=== PATIENT | male | born 1985 | race Caucasian/White ===

== ENCOUNTER 2020-01-24 03:46 | Inpatient (IN) | payer SELFPAY ==
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
[2020-01-24] MEDS ORDERED: LORazepam INJ* 2 MG/ML 1 ML VIAL IM ONE (04:02)
[2020-01-24] MEDS ORDERED: diPHENhydraMINE IV* 50 MG/ML 1 ml VIAL (BENADRYL) IM ONE (04:02)
[2020-01-24] MEDS ORDERED: Haloperidol INJ IV/IM* 5 MG/ML AMP IM ONE (04:02)
[2020-01-24] MEDS ORDERED: Haloperidol Decanoate* 50 MG/ML AMP ONE (04:03)
[2020-01-24] MEDS ORDERED: LORazepam INJ* 2 MG/ML 1 ML VIAL ONE (04:03)
[2020-01-24] MEDS ORDERED: diPHENhydraMINE IV* 50 MG/ML 1 ml VIAL (BENADRYL) ONE (04:03)
[2020-01-24 04:12] LABS: ABS Basophils 0.1 10^3/ul (0-0.2); ABS Lymphocytes 3.2 10^3/ul (1.0-4.8); ABS Monocytes 0.6 10^3/ul (0-0.8); ABS Neutrophils 5.7 10^3/ul (1.5-7.7); Eosinophil % 0.2 %; Hematocrit 48 % (42-52); Lymphocyte % 33.6 %; Mean Corpuscular HGB Conc 35 g/dL (31-36); Mean Corpuscular Hemoglobin 32 pg (27-31); Mean Corpuscular Volume 90 fL (80-94); Mean Platelet Volume 7.4 fL (7.4-10.4); Platelet Count 309 10^3/uL (150-450); Red Blood Count 5.38 10^6 /uL (4.18-5.48); Red Cell Distribution Width 13 % (10-15); White Blood Count 9.7 10^3/uL (3.5-10.8)
[2020-01-24 04:28] LABS: ALT 45 U/L (7-52); AST 28 U/L (13-39); Albumin 4.7 g/dL (3.2-5.2); Albumin/Globulin Ratio 1.5 (1-3); Alkaline Phosphatase 95 U/L (34-104); Anion Gap 11 mmol/L (2-11); BUN/Creatinine Ratio 11.5 (8-20); Blood Urea Nitrogen 9 mg/dL (6-24); CO2 Carbon Dioxide 24 mmol/L (22-32); Calcium 9.7 mg/dL (8.6-10.3); Chloride 104 mmol/L (101-111); EGFR African American 136.3 (>60); EGFR Non-African American 112.6 (>60); Globulin 3.2 g/dL (2-4); Glucose 157 mg/dL (70-100); Potassium 3.6 mmol/L (3.5-5.0); Sodium 139 mmol/L (135-145); Total Protein 7.9 g/dL (6.4-8.9)
[2020-01-24 04:49] LABS: Acetaminophen < 15 mcg/mL; Alcohol 242 mg/dL (<10); Salicylate < 2.50 mg/dL (<30)
[2020-01-24 04:51] LABS: Urine Benzodiazepine Screen None Detected (None Detect); Urine Opiates Screen None Detected (None Detect)
[2020-01-24 04:53] LABS: Urine Appearance Clear; Urine Bacteria Absent (Absent); Urine Bilirubin Negative (Negative); Urine Blood Negative (Negative); Urine Color Straw; Urine Glucose Negative (Negative); Urine Ketones Negative (Negative); Urine Nitrite Negative (Negative); Urine Protein Negative (Negative); Urine Red Blood Cell Trace(0-2/hpf) (Absent); Urine Specific Gravity 1.003 (1.010-1.030); Urine Squamous Epithelial Cell Present (Absent); Urine Urobilinogen Negative (Negative); Urine White Blood Cell Trace(0-5/hpf) (Absent)
[2020-01-24 05:05] LABS: TSH (Thyroid Stimulating Horm) 4.15 mcIU/mL (0.34-5.60)
--- NOTE | 2020-01-24 09:44 | ED ---
Progress - Progress Note Progress Note: Receiving sign-out from Dr. Solitario at 0700 01/24/2020 pending sobriety and MHE. Patient became sober at 1000 and cleared for MHE. Patient was diagnosed with substance use disorder by MHE and admitted to the psychiatric facility involuntarily, per Dr. Romero, Psychiatry. Re-Evaluation - Re-Evaluation First Eval Re-Evaluation Time: 04:05 Comment: Chemical restraints ordered, patient was uncooperative, a harm to self and others, multiple attempts at de-escalation were unsuccessful. Second Eval Re-Evaluation Time: 04:54 Change: Improved Comment: Patient is calm after receiving Benadryl, Ativan, and Haldol. Course/Dx - Course Course Of Treatment: Receiving sign-out from Dr. Solitario at 0700 01/24/2020 pending sobriety and MHE. Patient became sober at 1000 and cleared for MHE. Patient was diagnosed with substance use disorder by MHE and admitted to the psychiatric facility involuntarily, per Dr. Romero, Psychiatry. - Diagnoses Provider Diagnoses: Acute alcohol intoxication, Suicidal ideation, Substance use disorder Discharge ED - Sign-Out/Discharge Documenting (check all that apply): Patient Departure - Admission to Psych, per MHE - Discharge Plan Condition: Stable Disposition: PSYCHIATRIC FACILITY-OTHER - Billing Disposition and Condition Condition: STABLE Disposition: Psychiatric Facility Other - Attestation Statements Document Initiated by Marah: Yes Documenting Scribe: Yvan Reyes Provider For Whom Marah is Documenting (Include Credential): Jacek Castrejon DO Scribe Attestation: IYvan scribed for Jacek Castrejon DO on 01/24/20 at 1444. Scribe Documentation Reviewed: Yes Provider Attestation: The documentation as recorded by the Yvan hooper accurately reflects the service I personally performed and the decisions made by , Jacek Castrejon DO Status of Scribe Document: Viewed
[2020-01-24] MEDS ORDERED: Acetaminophen TAB* 325 MG PO PRN (11:10)
[2020-01-24] MEDS ORDERED: Al Hydrox/Mg Hydrox/Simet LIQ* 30 ML UDC PO PRN (11:10)
[2020-01-24] MEDS ORDERED: LORazepam TAB(*) 1 MG PO SCH (12:00)
[2020-01-25] MEDS: Multivitamins/Minerals TAB PO SCH (07:31)
[2020-01-25] MEDS: Folic Acid TAB* 1 MG PO SCH (07:31)
[2020-01-25] MEDS: Thiamine TAB* 100 MG TAB PO SCH (07:32)
[2020-01-25 08:35] LABS: HDL Cholesterol 42.6 mg/dL
[2020-01-25] MEDS: Escitalopram * 20 MG TABLET PO SCH (14:21)
[2020-01-25] MEDS: Pantoprazole TAB * 40 MG TAB PO SCH (14:21)
[2020-01-25] MEDS: amLODIPine TAB* 5 MG PO SCH (15:16)
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
[2020-01-26] MEDS: Thiamine TAB* 100 MG TAB PO SCH (09:49)
[2020-01-26] MEDS: amLODIPine TAB* 5 MG PO SCH (09:49)
[2020-01-26] MEDS: Pantoprazole TAB * 40 MG TAB PO SCH (09:49)
[2020-01-26] MEDS: Multivitamins/Minerals TAB PO SCH (09:49)
[2020-01-26] MEDS: Escitalopram * 20 MG TABLET PO SCH (09:49)
[2020-01-26] MEDS: Folic Acid TAB* 1 MG PO SCH (09:49)
[2020-01-26] MEDS: Nicotine* 4MG (FRUIT FLAVOR) GUM PO PRN ×3 (15:44→21:21)
[2020-01-26] MEDS: Nicotine PATCH 21 MG/24 HR* PATCH TRANSDERM SCH (15:44)
--- NOTE | 2020-01-26 16:09 | PN ---
Subjective - Subjective Date of Service: 01/26/20 Service Type: 06050 Hosp care 35 min high complexity Subjective: Patient reports he feels "good" and denies SI. He continues to minimize alcohol use and how it has impacted relationships and legal consequences. He is alternately cooperative, defensive, and ingratiating. He is dismissive of suggestions for treatment with the exception of "what do I need to do to get out of here?" Patient is strongly encouraged to participate in unit programming and self-reflection. He is given information about medications for alcohol use disorder, declines at this time. Licensed Investment Sales Assistant spoke with patient's SO, Nichole. Apparently, he had told her that he is being discharged today and she was feverishly trying to find out about his court appearance and plan for his return. She states she doesn't want him to come home because she has set limits about substance use in the past but then took him back because of her concern for him. She states that she has " dealing with this for 10 years" and doesn't know what to do. She states she him in 2009, before he disclosed addiction to opiates until 2012. He also has a history of abusing adderall. She goes into detail about how most of the problems in his life and their relationship center around alcohol but that he doesn't see it. She asked about his behavior on the unit and she was given update. She states "you can tell him that until he participates in treatment, he doesn't have a place to live." She states preference for him to attend inpatient rehab. Licensed Investment Sales Assistant notified Philip of plan to continue to treat over the weekend, especially due to threats to suicide after hospitalization. He is informed of Nichole's boundary that he must engage in treatment in order to return to her mother's home. He is ingratiating and pleading to be discharged. Licensed Investment Sales Assistant reiterates encouragement to be open-minded and to engage in treatment and self-reflection. Objective - General Observations Appearance: Well Groomed Stature: Overweight Posture: WNL Eye Contact: Average Behavior/Activity: Agitated - Interaction Observations Attitude Towards Examiner: Anxious, Defensive, Ingratiating, Dismissive Stated Mood: Irritable Affect: Labile Speech Pattern/Tone: Clear, Appropriate, Normal Volume Thought Process: Circumstantial Thought Content: Depressive Thought Process: Lethality: Suicidal Planning Hallucination Type: Denies Delusion Type: Denies - Cognitive Function Orientation: A&O x 4 Level of Consciousness: Alert Cognition: Impaired Attention/Concentration Estimated Intelligence: Normal Insight: Mostly Blames Others for Problems Judgment Within Normal Limits: No Ability to Make Reasonable Decisions: Serverely Impaired - Medication Compliance Cooperative with Inpatient Medication Regimen: Yes - Group Participation Participates in Group Activities: No Assessment - Assessment Merits Inpatient Hospitalization: For Immediate Safety, For Stabilization Inpatient DSM-V Dx: F10.14 Clinical Impression: 34 yo wm, unemployed, tenuously housed with ex- and her mother. He was brought to ED due to making suicidal and violent threats to police when being arrested for DWI. He is minimizing need for treatment and externalizes blame. He made statements about planning to pretend everything is ok and suiciding after discharge. He continues to present as labile and agitated. Patient merits hospitalization for immediate safety and stabilization. Plan - Plan Treatment Plan: Name: PHILIP ANDRES Birthdate: 1985 [id number] continue acute intensive psychiatric treatment. may decrease to q30min. continue current medications. discharge planning to include MH and [facility] treatment referrals. Medications: Current Medications Acetaminophen (Tylenol Tab*) 650 mg PO Q4H PRN PRN Reason: for pain; or Temp >101 F Al Hydrox/Mg Hydrox/Simethicone (Maalox Plus*) 30 ml PO Q4H PRN PRN Reason: INDIGESTION Amlodipine Besylate (Norvasc Tab*) 5 mg PO DAILY [facility] Last Admin: 01/26/20 09:49 Dose: 5 mg Escitalopram Oxalate (Lexapro *) 20 mg PO DAILY [facility] Last Admin: 01/26/20 09:49 Dose: 20 mg Folic Acid (Folvite Tab*) 1 mg PO DAILY [facility] Last Admin: 01/26/20 09:49 Dose: 1 mg Hydroxyzine HCl (Atarax Tab*) 50 mg PO Q6H PRN PRN Reason: anxiety Lorazepam (Ativan Tab(*)) 0 - 6 mg PO .PER [facility] PROTOCOL [facility]; Protocol Last Admin: 01/25/20 07:31 Dose: 2 mg Multivitamins/Minerals (Theragran/Minerals Tab*) 1 tab PO DAILY [facility] Last Admin: 01/26/20 09:49 Dose: 1 tab Nicotine (Nicotine Patch 21 Mg/24 Hr*) 1 patch TRANSDERM DAILY [facility] Nicotine Polacrilex (Nicotine Gum*) 4 mg PO Q2H PRN PRN Reason: CRAVING Pantoprazole Sodium (Protonix Tab*) 40 mg PO DAILY [facility] Last Admin: 01/26/20 09:49 Dose: 40 mg Pharmacy Profile Note (Nicotine Patch Removal Note*) 1 note FOLLOW UP 2100 [facility] Thiamine HCl (Vitamin B-1 Tab*) 100 mg PO DAILY [facility] Last Admin: 01/26/20 09:49 Dose: 100 mg - Discharge Plan Discharge Plan: Inpatient Hospitalization
[2020-01-26] MEDS: Nicotine Patch Removal NOTE FOLLOW UP SCH (21:00)
[2020-01-27] MEDS: Pantoprazole TAB * 40 MG TAB PO SCH (09:04)
[2020-01-27] MEDS: Multivitamins/Minerals TAB PO SCH (09:04)
[2020-01-27] MEDS: Escitalopram * 20 MG TABLET PO SCH (09:04)
[2020-01-27] MEDS: amLODIPine TAB* 5 MG PO SCH (09:04)
[2020-01-27] MEDS: Folic Acid TAB* 1 MG PO SCH (09:04)
[2020-01-27] MEDS: Thiamine TAB* 100 MG TAB PO SCH (09:04)
[2020-01-27] MEDS: Nicotine PATCH 21 MG/24 HR* PATCH TRANSDERM SCH (09:05)
[2020-01-27] MEDS: Nicotine* 4MG (FRUIT FLAVOR) GUM PO PRN ×4 (09:21→18:28)
[2020-01-27] MEDS: hydrOXYzine HCL TAB* 50 MG PO PRN (18:28)
--- NOTE | 2020-01-27 20:06 | PN ---
Subjective - Subjective Date of Service: 01/27/20 Service Type: 23355 Hosp care 15 min low complexity Subjective: Has no complaints about his treatment here. Sleeping OK. Reports no alcohol withdrawal symptoms. Plans on inpt rehab for that. Objective - General Observations Appearance: Neat, Well Groomed Appears Stated Age: Yes Stature: WNL Posture: WNL Eye Contact: Average Behavior/Activity: WNL - Interaction Observations Attitude Towards Examiner: Cooperative Stated Mood: Dysphoric Affect: Full Speech Pattern/Tone: Clear, Appropriate, Normal Volume Thought Process: Coherent, Goal Directed Perception: WNL Thought Content: WNL Hallucination Type: None Delusion Type: None - Cognitive Function Orientation: A&O x 4 Level of Consciousness: Awake, Alert, Appropriate Cognition: WNL Estimated Intelligence: Normal Insight: WNL Judgment Within Normal Limits: Yes Ability to Make Reasonable Decisions: Mildly Impaired - Medication Compliance Cooperative with Inpatient Medication Regimen: Yes - Group Participation Participates in Group Activities: Yes Assessment - Assessment Merits Inpatient Hospitalization: For Stabilization, Consolidate Improvements, For Discharge Planning Inpatient DSM-V Dx: F10.14 Clinical Impression: 34 yo wm, unemployed, tenuously housed with ex- and her mother. He was brought to ED due to making suicidal and violent threats to police when being arrested for DWI. He is minimizing need for treatment and externalizes blame. He made statements about planning to pretend everything is ok and suiciding after discharge. He continues to present as labile and agitated. Patient merits hospitalization for immediate safety and stabilization. On 01.27.20, reports agreement with aftercare for alcohol use disorder at in program. Agreeable to psychiatric aftercare, likely at [facility]. Plan - Plan Treatment Plan: Name: BANDAR ANDRES Birthdate: 1985 [id number] continue acute intensive psychiatric treatment. may decrease to q30min. continue current medications. discharge planning to include MH and [facility] treatment referrals. Continued Medication Management: Continue Outpt Medication Medications: Current Medications Acetaminophen (Tylenol Tab*) 650 mg PO Q4H PRN PRN Reason: for pain; or Temp >101 F Al Hydrox/Mg Hydrox/Simethicone (Maalox Plus*) 30 ml PO Q4H PRN PRN Reason: INDIGESTION Amlodipine Besylate (Norvasc Tab*) 5 mg PO DAILY [facility] Last Admin: 01/27/20 09:04 Dose: 5 mg Escitalopram Oxalate (Lexapro *) 20 mg PO DAILY [facility] Last Admin: 01/27/20 09:04 Dose: 20 mg Folic Acid (Folvite Tab*) 1 mg PO DAILY [facility] Last Admin: 01/27/20 09:04 Dose: 1 mg Hydroxyzine HCl (Atarax Tab*) 50 mg PO Q6H PRN PRN Reason: anxiety Last Admin: 01/27/20 18:28 Dose: 50 mg Lorazepam (Ativan Tab(*)) 0 - 6 mg PO .PER [facility] PROTOCOL [facility]; Protocol Last Admin: 01/25/20 07:31 Dose: 2 mg Multivitamins/Minerals (Theragran/Minerals Tab*) 1 tab PO DAILY [facility] Last Admin: 01/27/20 09:04 Dose: 1 tab Nicotine (Nicotine Patch 21 Mg/24 Hr*) 1 patch TRANSDERM DAILY [facility] Last Admin: 01/27/20 09:05 Dose: 1 patch Nicotine Polacrilex (Nicotine Gum*) 4 mg PO Q2H PRN PRN Reason: CRAVING Last Admin: 01/27/20 18:28 Dose: 4 mg Pantoprazole Sodium (Protonix Tab*) 40 mg PO DAILY [facility] Last Admin: 01/27/20 09:04 Dose: 40 mg Pharmacy Profile Note (Nicotine Patch Removal Note*) 1 note FOLLOW UP 2100 [facility] Last Admin: 01/26/20 21:00 Dose: 1 note Thiamine HCl (Vitamin B-1 Tab*) 100 mg PO DAILY [facility] Last Admin: 01/27/20 09:04 Dose: 100 mg - Discharge Plan Discharge Plan: Outpatient Follow Up Outpatient Program: [facility] probably
[2020-01-27] MEDS: Nicotine Patch Removal NOTE FOLLOW UP SCH (22:17)
[2020-01-28] MEDS: Folic Acid TAB* 1 MG PO SCH (08:20)
[2020-01-28] MEDS: Thiamine TAB* 100 MG TAB PO SCH (08:20)
[2020-01-28] MEDS: amLODIPine TAB* 5 MG PO SCH (08:20)
[2020-01-28] MEDS: Multivitamins/Minerals TAB PO SCH (08:20)
[2020-01-28] MEDS: Pantoprazole TAB * 40 MG TAB PO SCH (08:20)
[2020-01-28] MEDS: Escitalopram * 20 MG TABLET PO SCH (08:20)
[2020-01-28] MEDS: Nicotine PATCH 21 MG/24 HR* PATCH TRANSDERM SCH (08:21)
[2020-01-28] MEDS: Nicotine* 4MG (FRUIT FLAVOR) GUM PO PRN ×5 (08:23→21:00)
[2020-01-28] MEDS: hydrOXYzine HCL TAB* 50 MG PO PRN (21:00)
[2020-01-28] MEDS: Nicotine Patch Removal NOTE FOLLOW UP SCH (21:00)
[2020-01-29] MEDS: Escitalopram * 20 MG TABLET PO SCH (08:20)
[2020-01-29] MEDS: amLODIPine TAB* 5 MG PO SCH (08:21)
[2020-01-29] MEDS: Multivitamins/Minerals TAB PO SCH (08:21)
[2020-01-29] MEDS: Folic Acid TAB* 1 MG PO SCH (08:21)
[2020-01-29] MEDS: Pantoprazole TAB * 40 MG TAB PO SCH (08:21)
[2020-01-29] MEDS: Thiamine TAB* 100 MG TAB PO SCH (08:21)
[2020-01-29] MEDS: Nicotine PATCH 21 MG/24 HR* PATCH TRANSDERM SCH (08:22)
[2020-01-29] MEDS: Nicotine* 4MG (FRUIT FLAVOR) GUM PO PRN ×2 (08:23→12:09)
[2020-01-29 08:50] VITALS: BP 146/97
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
== END 2020-01-29 14:15 | disposition home or self-care (01) | DRG 897 ==
LOC: ED 03:46 → BSU 11:10
PROVIDERS: ADMIT Psychiatry & Neurology Psychiatry; ATTEND Psychiatry & Neurology Psychiatry
DX: F10.14 Alcohol abuse with alcohol-induced mood disorder (principal); R45.851 Suicidal ideations; F10.129 Alcohol abuse with intoxication, unspecified; Y90.8 Blood alcohol level of 240 mg/100 ml or more; I10 Essential (primary) hypertension; K21.9 Gastro-esophageal reflux disease without esophagitis; F17.210 Nicotine dependence, cigarettes, uncomplicated; F17.290 Nicotine dependence, other tobacco product, uncomplicated; F32.9 Major depressive disorder, single episode, unspecified; R45.850 Homicidal ideations; F12.90 Cannabis use, unspecified, uncomplicated; Z56.0 Unemployment, unspecified; Z79.899 Other long term (current) drug therapy
CPT/HCPCS: 36415; 80053; 80061; 80307; 80320; 80329; 81003; 83036; 84443; 85025; 87086; 99222; 99231; 99233; 99238; 99283; A9270-GY; G0480; J1200; J1631; J2060